=== PATIENT | female | born 2000 | race African-American/Black ===

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

== ENCOUNTER 2020-01-17 10:15 | Emergency (ER) | payer OTHER ==
--- NOTE | 2020-01-17 13:39 | RAD ---
RIGHT FOOT THREE VIEWS: 01/17/20 The patient presents with lateral foot trauma without bruising. The 2002 study to compare with is alexandra ly not comparable as it was when the patient was an . The tuberosity at the base of the fifth metatarsal was ununited from the rest of the bone. This was c learly not recent. It appears more like an ununited prior fracture than it does the accessory ossific ation center that is often found in this location. There were no findings strongly suggestive of an a cute fracture. The recent trauma could have exacerbated this area, however. No periosteal reaction w as seen. The joints all appear normal. IMPRESSION: Findings most consistent with an old ununited fracture at the base of the fifth metatarsal. POS: HOME
== END 2020-01-17 11:22 | disposition home or self-care (01) ==
LOC: BURERS 10:15
DX: S92.354A Nondisplaced fracture of fifth metatarsal bone, right foot, initial encounter for closed fracture (principal); F90.9 Attention-deficit hyperactivity disorder, unspecified type; J45.909 Unspecified asthma, uncomplicated; X50.1XXA Overexertion from prolonged static or awkward postures, initial encounter; Y93.67 Activity, basketball
CPT/HCPCS: 28470

== ENCOUNTER 2020-07-27 15:32 | Emergency (ER) | payer OTHER ==
[2020-07-27] MEDS ORDERED: Sulfameth/Trimethoprim DS 800-160mg TAB ONE (16:23)
== END 2020-07-27 16:27 | disposition home or self-care (01) ==
LOC: BURERS 15:32
DX: L03.116 Cellulitis of left lower limb (principal); L03.115 Cellulitis of right lower limb; J45.909 Unspecified asthma, uncomplicated
CPT/HCPCS: 99283

== ENCOUNTER 2022-04-09 10:52 | Emergency (ER) | payer OTHER ==
[2022-04-09] MEDS ORDERED: Acetaminophen 325 MG TAB ONE (11:39)
== END 2022-04-09 12:16 | disposition home or self-care (01) ==
LOC: BURERS 10:52
DX: S00.81XA Abrasion of other part of head, initial encounter (principal); V89.2XXA Person injured in unspecified motor-vehicle accident, traffic, initial encounter
CPT/HCPCS: 70450

== ENCOUNTER 2022-06-21 00:53 | Emergency (ER) | payer OTHER ==
[2022-06-21] MEDS ORDERED: Metoclopramide HCl 10 MG TAB ONE (10:26)
[2022-06-23 10:46] LABS: Bilirubin Negative (Negative); Blood, Urine Negative (Negative); Clarity Clear (Clear); Glucose, Urine (Dipstick) Negative (Negative); Ketone, Urine 40 mg/dL (Negative); Leukocyte Trace (Negative); Nitrite Negative (Negative); Protein, Urine (Dipstick) Negative (Neg-Trace); RBC/HPF 0-3 HPF (0-3); WBC/HPF 0-3 HPF (0-3)
[2022-06-23 10:47] LABS: Bacteria/HPF Rare-Few HPF (None Seen); Pregnancy Test - Urine (BHCG) Negative (Negative); Pregu Control Background? CLEAR/WHITE (CLR/WHITE); Pregu Control Bar Appear? YES (CONTROL BAR)
== END 2022-06-21 02:25 | disposition home or self-care (01) ==
LOC: BURERS 00:53
DX: B34.9 Viral infection, unspecified (principal); J45.909 Unspecified asthma, uncomplicated
CPT/HCPCS: 81003; 81015; 81025; 87086; 99284